=== PATIENT | female | born 1975 | race Caucasian/White ===

== ENCOUNTER → 2016-08-15 | Outpatient (CLI) | payer OTHER | END | disposition home or self-care (01) | LOC: C.LABBFT 07:58 | PROVIDERS: ATTEND Internal Medicine | DX: Z00.00 Encounter for general adult medical examination without abnormal findings (principal); E78.00 Pure hypercholesterolemia, unspecified ==

== ENCOUNTER → 2016-08-24 | Outpatient (CLI) | payer OTHER ==
--- NOTE | 2016-08-24 15:35 | MAMMOGRAPHY REPORT ---
BILATERAL FIRST EVER DIGITAL SCREENING MAMMOGRAM TOMOSYNTHESIS WITH CAD: 08/24/2016 TECHNIQUE: Breast tomosynthesis in addition to standard 2D mammography was performed. Current study was also evaluated with a Computer Aided Detection (CAD) system. COMPARISON: No prior exams were available for comparison. BREAST COMPOSITION: The tissue of both breasts is heterogeneously dense, which may obscure small ma sses. FINDINGS: No suspicious masses, calcifications, or areas of architectural distortion are noted in e ither breast. IMPRESSION: ACR BI-RADS CATEGORY 1: NEGATIVE There is no mammographic evidence of malignancy. A 1 year screening mammogram is recommended. The p atient will receive written notification of the results. Approximately 10% of breast cancers are not detected with mammography. A negative mammographic repor t should not delay biopsy if a clinically suggestive mass is present. Yun Skelton M.D. ah/:08/24/2016 15:16:31 Purchasing Supervisor: Deb SANZ(Renetta)(Esha), [facility] letter sent: Normal 1/2 BI-RADS Code: ACR BI-RADS Category 1: Negative
== END | disposition home or self-care (01) ==
LOC: C.MAMM 08:54
PROVIDERS: ATTEND Internal Medicine
DX: Z12.31 Encounter for screening mammogram for malignant neoplasm of breast (principal)

== ENCOUNTER → 2017-10-03 | Outpatient (CLI) | payer OTHER ==
--- NOTE | 2017-10-03 15:56 | MAMMOGRAPHY REPORT ---
BILATERAL DIGITAL SCREENING MAMMOGRAM TOMOSYNTHESIS WITH CAD: 10/03/2017 CLINICAL HISTORY: Routine screening. TECHNIQUE: Breast tomosynthesis in addition to standard 2D mammography was performed. Current study was also evaluated with a Computer Aided Detection (CAD) system. COMPARISON: Comparison is made to exam dated: 08/24/2016 mammogram - [facility]. BREAST COMPOSITION: The tissue of both breasts is heterogeneously dense, which may obscure small mas ses. FINDINGS: The parenchymal pattern is unchanged. No developing mass, architectural distortion or clus ter of suspicious microcalcifications is seen in either breast. IMPRESSION: ACR BI-RADS CATEGORY 2: BENIGN There is no mammographic evidence of malignancy. A 1 year screening mammogram is recommended. The pa tient will receive written notification of the results. Approximately 10% of breast cancers are not detected with mammography. A negative mammographic report should not delay biopsy if a clinically suggestive mass is present. Leeanne Santiago M.D. ay/:10/03/2017 12:46:08 Director Corporate Compliance: Reese SANZ(Renetta)(Esha), [facility] letter sent: Normal 1/2 BI-RADS Code: ACR BI-RADS Category 2: Benign
== END | disposition home or self-care (01) ==
LOC: C.MAMM 10:07
PROVIDERS: ATTEND Internal Medicine
DX: Z12.31 Encounter for screening mammogram for malignant neoplasm of breast (principal)

== ENCOUNTER → 2017-11-01 | Outpatient (CLI) | payer OTHER | END | disposition home or self-care (01) | LOC: C.LABBFT 10:11 | PROVIDERS: ATTEND Obstetrics & Gynecology | DX: N91.1 Secondary amenorrhea (principal) ==

== ENCOUNTER → 2017-12-04 | Outpatient (CLI) | payer OTHER | END | disposition home or self-care (01) | LOC: C.PAPS 11:46 | PROVIDERS: ATTEND Obstetrics & Gynecology | DX: Z01.419 Encounter for gynecological examination (general) (routine) without abnormal findings (principal); Z87.42 Personal history of other diseases of the female genital tract ==

== ENCOUNTER 2018-02-10 03:14 | Observation (INO) | payer OTHER ==
[~2018-02-10] VITALS: Ht 157.5 cm; Wt 57.0 kg
[2018-02-10] VITALS (7 sets, daily range): BP systolic 99–108; BP diastolic 63–68; PULSE 64–78; TEMP 36.4–37.3; O2SAT 95–98; Ht 157.5 cm; Wt 57.0 kg
[~2018-02-10 03:14] MED LIST: ASCO10003 PO; BISM262C6 PO; CHOL20009 PO; FERR18TA2 PO; ONDA4TAB10 SL; [UNRECOGNIZED DRUG - OTHER] TOP
[2018-02-10] MEDS ORDERED: ONDANSETRON INJ 2 MG/ML 2 ML VIAL IV STA (03:31)
[2018-02-10] MEDS ORDERED: MoRPHine SULFATE 4 MG/ML 1 ML CARP\\VIAL IV STA (03:31)
[2018-02-10] MEDS ORDERED: SODIUM CHLORIDE 0.9% 1000ML 1,000 ML IV STA (03:31)
[2018-02-10] MEDS ORDERED: OPTIRAY 320 IV PRN (03:45)
[2018-02-10 04:06] LABS: BASO % 0.1 %; BASO ABS # 0.01 K/uL (0-0.2); EOS % 0.1 %; EOS ABS # 0.01 K/uL (0-0.5); HEMATOCRIT 34.5 % (37-47); HEMOGLOBIN 11.4 g/dL (12.0-16.0); IG# 0.05 K/uL (0.00-0.02); LYMPH % 6.6 %; LYMPH ABS # 1.14 K/uL (1.2-3.4); MEAN CORPUSCULAR HEMOGLOBIN 31.1 pg (25-34); MEAN PLATELET VOLUME 11.2 fL (7.4-10.4); MONO % 9.3 %; MONO ABS # 1.61 K/uL (0.11-0.59); NEUT % 83.6 %; NEUT ABS # 14.52 K/uL (1.4-6.5); PLATELET COUNT 319 K/uL (130-400); RED CELL DISTRIBUTION WIDTH CV 13.9 % (11.5-14.5); RED CELL DISTRIBUTION WIDTH SD 47.2 fL (36.4-46.3); WHITE BLOOD COUNT 17.34 K/uL (4.8-10.8)
[2018-02-10 04:29] LABS: ALBUMIN 3.2 gm/dl (3.4-5.0); ALT/SGPT 20 U/L (12-78); AST/SGOT 13 U/L (15-37); BLOOD UREA NITROGEN 5 mg/dl (7-18); CALCIUM 7.8 mg/dl (8.5-10.1); CARBON DIOXIDE 26 mmol/L (21-32); CREATININE 0.63 mg/dl (0.60-1.20); GLUCOSE 103 mg/dl (70-99); LIPASE 720 U/L (73-393); POTASSIUM 3.5 mmol/L (3.5-5.1); SODIUM 142 mmol/L (136-145)
[2018-02-10 04:30] LABS: ALKALINE PHOSPHATASE 46 U/L (45-117); TOTAL PROTEIN 6.2 gm/dl (6.4-8.2)
[2018-02-10] MEDS ORDERED: CEFOXITIN SOD 1 GM VIAL IV STA (05:39)
--- NOTE | 2018-02-10 05:39 | EMERGENCY ROOM VISIT NOTE ---
History First contact with patient: 03:27 Chief Complaint: ABDOMINAL PAIN Stated Complaint: LWR RIGHT ABDOMINAL PAIN History of Present Illness The patient is a 42 year old female who presents to the Emergency Room with complaints of periumbilical right lower quadrant pain for the past day and a half that has gotten steadily worse. She describes the pain as throbbing, ranging severity 8 out of 10. Nothing makes it better or worse. It does not radiate. She states this is not feeling her menstrual cramps. She is currently spotting. Patient was seen here last night and is feeling slightly better but states the pain came back and came in for further evaluation and treatment. Patient states she tried some dry toast and Gatorade but this did not help. Patient complains of subjective fever and chills with nausea. Patient denies chest pain, dyspnea, vomiting, urinary symptoms, back pain, female problems. Review of Systems An 10 system review of systems was completed with positives and pertinent negatives listed in the HPI. Past Medical/Surgical History None Social History Smoking Status: Never Smoker Smokeless Tobacco Use: No Drug Use: none Marital Status: Housing Status: lives with family Current/Historical Medications Scheduled Ascorbic Acid (Vitamin C), 1,000 MG PO DAILY Bismuth Subsalicylate (Pepto-Bismol), 2 TABS PO prn Cholecalciferol (Vitamin D), 2,000 UNIT PO DAILY Ferrous Fumarate (Iron), 18 MG PO DAILY Ondasetron Odt (Zofran Odt), 4 MG SL Q6H [Natural Progesterine], 1 APPLN TOP UD Physical Exam Vital Signs Date Time Temp Pulse Resp B/P (MAP) Pulse Ox O2 Delivery O2 Flow Rate FiO2 02/10/18 05:12 62 18 98/59 96 Room Air 02/10/18 03:20 36.9 73 18 106/65 100 Room Air Physical Exam VITALS: Vitals are noted on the nurse's note and reviewed by myself. Vital signs stable. GENERAL: Pleasant edema, in no acute distress, nondiaphoretic, well-developed well-nourished. SKIN: The skin was without rashes, erythema, edema, or bruising. There is no tenting of the skin. Capillary reflex less than 2 seconds. HEAD: Normocephalic atraumatic. EARS: External auditory canals clear, tympanic membranes pearly lyons without erythema or effusion bilaterally. EYES: Pupils equal round and reactive to light and accommodation. Conjunctivae without injection, sclerae without icterus. Extraocular movements intact. NOSE: Patent, turbinates without inflammation or discharge. MOUTH: Mucous membranes moist. Pharynx without erythema or exudate. Uvula midline. Airway patent. Tongue does not deviate. NECK: Supple without nuchal rigidity. No lymphadenopathy. No thyromegaly. Cervical spine is nontender. No JVD. HEART: Regular rate and rhythm without murmurs gallops or rubs. LUNGS: Clear to auscultation bilaterally without wheezes, rales or rhonchi. No retractions or accessory muscle use. ABDOMEN: Positive bowel sounds x 4. Normal tympanic percussion. Soft, tender to palpation right lower quadrant, without masses or organomegaly. Shafer sign negative. No guarding or rebound tenderness. No CVA tenderness MUSCULOSKELETAL: No muscle atrophy, erythema, or edema noted. NEURO: Patient was alert and oriented to person place and time. Normal sensation to light and sharp touch. No focal neurological deficits. Medical Decision & Procedures Laboratory Results 02/10/18 03:47 Red Blood Count 3.67, Mean Corpuscular Volume 94.0, Mean Corpuscular Hemoglobin 31.1, Mean Corpuscular Hemoglobin Concent 33.0, Mean Platelet Volume 11.2, Neutrophils (%) (Auto) 83.6, Lymphocytes (%) (Auto) 6.6, Monocytes (%) (Auto) 9.3, Eosinophils (%) (Auto) 0.1, Basophils (%) (Auto) 0.1, Neutrophils # (Auto) 14.52, Lymphocytes # (Auto) 1.14, Monocytes # (Auto) 1.61, Eosinophils # (Auto) 0.01, Basophils # (Auto) 0.01 02/10/18 03:47 Test 02/10/18 03:47 White Blood Count 17.34 K/uL (4.8-10.8) Red Blood Count 3.67 M/uL (4.2-5.4) Hemoglobin 11.4 g/dL (12.0-16.0) Hematocrit 34.5 % (37-47) Mean Corpuscular Volume 94.0 fL (80-100) Mean Corpuscular Hemoglobin 31.1 pg (25-34) Mean Corpuscular Hemoglobin Concent 33.0 g/dl (32-36) Platelet Count 319 K/uL (130-400) Mean Platelet Volume 11.2 fL (7.4-10.4) Neutrophils (%) (Auto) 83.6 % Lymphocytes (%) (Auto) 6.6 % Monocytes (%) (Auto) 9.3 % Eosinophils (%) (Auto) 0.1 % Basophils (%) (Auto) 0.1 % Neutrophils # (Auto) 14.52 K/uL (1.4-6.5) Lymphocytes # (Auto) 1.14 K/uL (1.2-3.4) Monocytes # (Auto) 1.61 K/uL (0.11-0.59) Eosinophils # (Auto) 0.01 K/uL (0-0.5) Basophils # (Auto) 0.01 K/uL (0-0.2) RDW Standard Deviation 47.2 fL (36.4-46.3) RDW Coefficient of Variation 13.9 % (11.5-14.5) Immature Granulocyte % (Auto) 0.3 % Immature Granulocyte # (Auto) 0.05 K/uL (0.00-0.02) Anion Gap 6.0 mmol/L (3-11) Est Creatinine Clear Calc Drug Dose 92.0 ml/min Estimated GFR () 128.2 Estimated GFR (Non- 110.6 BUN/Creatinine Ratio 8.6 (10-20) Calcium Level 7.8 mg/dl (8.5-10.1) Total Bilirubin 0.4 mg/dl (0.2-1) Direct Bilirubin < 0.1 mg/dl (0-0.2) Aspartate Amino Transf (AST/SGOT) 13 U/L (15-37) Alanine Aminotransferase (ALT/SGPT) 20 U/L (12-78) Alkaline Phosphatase 46 U/L (45-117) Total Protein 6.2 gm/dl (6.4-8.2) Albumin 3.2 gm/dl (3.4-5.0) Lipase 720 U/L (73-393) Human Chorionic Gonadotropin, Qual NEG (NEG) Medications Administered Medications (Trade) Dose Ordered Sig/Tamiko Route Start Time Stop Time Status Last Admin Dose Admin Sodium Chloride 1,000 ml @ 999 mls/hr Q1H1M STAT IV 02/10/18 03:31 02/10/18 04:31 DC 02/10/18 03:56 999 MLS/HR Morphine Sulfate (MoRPHine SULFATE INJ) 4 mg NOW STAT IV 02/10/18 03:31 02/10/18 03:33 DC 02/10/18 03:55 4 MG Ondansetron HCl (Zofran Inj) 4 mg NOW STAT IV 02/10/18 03:31 02/10/18 03:33 DC 02/10/18 03:51 4 MG ED Course Prior records/ancillary studies reviewed. Triage Nursing notes reviewed. Additional history obtained from family. The patient's history was concerning for abdominal pain. Differential diagnosis: Etiologies such as appendicitis, diverticulitis, PUD, biliary pathology, UTI, pancreatitis, obstruction, mesenteric ischemia, aortic pathology, infections, inflammatory bowel disease, renal colic, as well as others were entertained. Physical examination findings: As above. ER treatment provided: Morphine, Zofran, fluids On reassessment the patient felt better. Diagnostics interpreted by me: Patient's chart was reviewed from yesterday and had a white count 21,000. Negative hCG The labs revealed leukocytosis Imaging studies: CT ABDOMEN & PELVIS With Contrast: Dilated appendix posterior to the cecum with internal appendicoliths and periappendiceal fat stranding. The appendix measures up to 17 mm in diameter. This finding is most consistent with acute appendicitis. No abscess formation, bowel obstruction or bowel perforation. Minimal dependent presumed atelectasis at the lung bases. Periportal lucency/edema. There is a nonspecific finding but may be seen with hypervolemia. The liver, gallbladder, pancreas, spleen, adrenal glands and kidneys are unremarkable. Cystic change in the left adnexa may represent left ovarian/adnexal cyst. Detailed valuation limited. Radiologist: Nato Plascencia MD Study ready at 04:21 and initial results transmitted at 05:33 Critical Value Communications Clear Time Type Notes 02/10/18 05:32 Call Doctor Regarding Appendicitis, called ALEXANDRA Long on 02/10 05:31 (-04:00) Consultation: A consultation was placed with the surgical PAWagner. The case was discussed and diagnostics were reviewed. The patient was evaluated in the ER for further treatment. Exam and history seem consistent with acute appendicitis. Patient will be evaluated by surgery for further evaluation and treatment. Patient was started on antibiotics. By the evaluation outlined above emergent etiologies such as diverticulitis, PUD, biliary pathology, UTI, pancreatitis, obstruction, mesenteric ischemia, aortic pathology,inflammatory bowel disease, renal colic, as well as others were deemed relatively unlikely. The pt informed about the findings as listed above. All questions were answered and pleased with the treatment. Case reviewed with my attending. The chart was completed utilizing [email or web address] Speech voice recognition software. Grammatical errors, random word insertions, pronoun errors, and incomplete sentences are an occassional consequence of this system due to software limitations, ambient noise, and hardware issues. Any formal questions or concerns about the content, text, or information contained within the body of this dictation should be directly addressed to the physician certified pharmacist assistant for clarification. Medical Decision As above Medication Reconcilliation Current Medication List: was personally reviewed by me Blood Pressure Screening Patient's blood pressure: Normal blood pressure Impression Primary Impression: Appendicitis Departure Information Dispostion Being Evaluated By Surgeon Condition GOOD Referrals Priyanka Saldana M.D. (PCP) Patient Instructions My [facility] Problem Qualifiers Primary Impression: Appendicitis Appendicitis type: acute appendicitis Acute appendicitis type: with localized peritonitis Qualified Codes: K35.3 - Acute appendicitis with localized peritonitis
[2018-02-10] MEDS ORDERED: HYDROmorphone INJ 0.5 MG/0.5 ML SYR IV PRN (06:00)
[2018-02-10] MEDS ORDERED: HYDROmorphone INJ 1 MG/ML SYR IV PRN (06:00)
[2018-02-10] MEDS ORDERED: ONDANSETRON INJ 2 MG/ML 2 ML VIAL IV PRN ×3 (06:00→11:15)
[2018-02-10] MEDS ORDERED: IV FLUIDS COMPLETED PRN (06:00)
[2018-02-10] MEDS ORDERED: ACETAMINOPHEN IV 100 ML IV PRN (06:00)
--- NOTE | 2018-02-10 06:11 | Surgery Consultation ---
Consultation Date of Consultation: Feb 10, 2018. Attending Physician: Reason for Consultation: Acute Appendicitis History of Present Illness Patient is a 42F who presents to the ED this morning due to abdominal pain starting Sunday night. Her pain started in the epigastric area and last night migrated to the RLQ. She has had associated chills but denies any fever. She had a couple episodes of N/V yesterday. Denies hematemesis. Reports a decreased appetite. She last ate 2 pieces of toast yesterday afternoon. She has been moving her bowels and urinating without issue. Denies previous abdominal surgeries in the past. Denies use of blood thinning or anticoagulant medications. Denies FHx of appendicitis. Denies problems with anesthesia in the past. WBC 17.34. CT shows a 17 mm dilated appendix with associated appendicolith and periappendiceal fat stranding. Findings consistent with acute appendicitis. No perforation or abscess. Past Medical/Surgical History Medical Problems: (1) Appendicitis Status: Acute (2) Dehydration Status: Acute (3) Leukocytosis Status: Acute (4) Nausea, vomiting, and diarrhea Status: Acute Social History Smoking Status: Never Smoker Smokeless Tobacco Use: No Drug Use: none Marital Status: Housing Status: lives with family Allergies Coded Allergies: No Known Allergies (Verified , 09/18/02) Home Medications Scheduled Ascorbic Acid (Vitamin C), 1,000 MG PO DAILY Bismuth Subsalicylate (Pepto-Bismol), 2 TABS PO prn Cholecalciferol (Vitamin D), 2,000 UNIT PO DAILY Ferrous Fumarate (Iron), 18 MG PO DAILY Ondasetron Odt (Zofran Odt), 4 MG SL Q6H [Natural Progesterine], 1 APPLN TOP UD Current Inpatient Medications Current Inpatient Medications Medications (Trade) Dose Ordered Sig/Tamiko Route Start Time Stop Time Status Last Admin Dose Admin Ioversol (Optiray 320) 125 ml UD PRN IV 02/10/18 03:45 02/14/18 03:44 Sodium Chloride 1,000 ml @ 100 mls/hr Q10H IV 02/10/18 06:00 03/12/18 05:59 UNV Cefoxitin Sodium 1000 mg/Dextrose 60 ml @ 100 mls/hr Q6H IV 02/10/18 12:00 02/11/18 11:59 UNV Hydromorphone HCl (Dilaudid Inj) FOR PAIN 0.5-1MG 0.5MG ... Q3H PRN IV 02/10/18 06:00 02/24/18 05:59 Ondansetron HCl (Zofran Inj) 4 mg Q6H PRN IV 02/10/18 06:00 03/12/18 05:59 Acetaminophen 100 ml @ 400 mls/hr Q8H PRN IV 02/10/18 06:00 03/12/18 05:59 Miscellaneous (Iv Fluids Completed) 1 ea PRN PRN N/A 02/10/18 06:00 02/10/19 05:59 Review of Systems Constitutional: + chills, No fever Respiratory: No shortness of breath Cardiovascular: No chest pain Abdomen: + pain (RLQ), + nausea, + vomiting, No diarrhea, No constipation Genitourinary - Female: No dysuria, No hematuria Integumentary: No new/changing skin lesions, No color change Physical Exam Date Time Temp Pulse Resp B/P (MAP) Pulse Ox O2 Delivery O2 Flow Rate FiO2 02/10/18 05:12 62 18 98/59 96 Room Air 02/10/18 03:20 36.9 73 18 106/65 100 Room Air General Appearance: WD/WN, no apparent distress Head: normocephalic, atraumatic ENT: hearing grossly normal Respiratory/Chest: no respiratory distress Abdomen/GI: soft, no organomegaly, no pulsatile mass, + tenderness (RLQ) Neurologic/Psych: alert, normal mood/affect, oriented x 3 Skin: normal color, warm/dry Laboratory Results Last 24 Hours Test 02/10/18 03:47 White Blood Count 17.34 K/uL Red Blood Count 3.67 M/uL Hemoglobin 11.4 g/dL Hematocrit 34.5 % Mean Corpuscular Volume 94.0 fL Mean Corpuscular Hemoglobin 31.1 pg Mean Corpuscular Hemoglobin Concent 33.0 g/dl Platelet Count 319 K/uL Mean Platelet Volume 11.2 fL Neutrophils (%) (Auto) 83.6 % Lymphocytes (%) (Auto) 6.6 % Monocytes (%) (Auto) 9.3 % Eosinophils (%) (Auto) 0.1 % Basophils (%) (Auto) 0.1 % Neutrophils # (Auto) 14.52 K/uL Lymphocytes # (Auto) 1.14 K/uL Monocytes # (Auto) 1.61 K/uL Eosinophils # (Auto) 0.01 K/uL Basophils # (Auto) 0.01 K/uL RDW Standard Deviation 47.2 fL RDW Coefficient of Variation 13.9 % Immature Granulocyte % (Auto) 0.3 % Immature Granulocyte # (Auto) 0.05 K/uL Sodium Level 142 mmol/L Potassium Level 3.5 mmol/L Chloride Level 110 mmol/L Carbon Dioxide Level 26 mmol/L Anion Gap 6.0 mmol/L Blood Urea Nitrogen 5 mg/dl Creatinine 0.63 mg/dl Est Creatinine Clear Calc Drug Dose 92.0 ml/min Estimated GFR () 128.2 Estimated GFR (Non- 110.6 BUN/Creatinine Ratio 8.6 Random Glucose 103 mg/dl Calcium Level 7.8 mg/dl Total Bilirubin 0.4 mg/dl Direct Bilirubin < 0.1 mg/dl Aspartate Amino Transf (AST/SGOT) 13 U/L Alanine Aminotransferase (ALT/SGPT) 20 U/L Alkaline Phosphatase 46 U/L Total Protein 6.2 gm/dl Albumin 3.2 gm/dl Lipase 720 U/L Human Chorionic Gonadotropin, Qual NEG Assessment & Plan Acute appendicitis Abdomen soft, non-distended, moderate TTP in RLQ. no N/V at this time. Plan for laparoscopic appendectomy, possible open with Dr. Russell in the OR today. Risks, benefits, alternatives to the procedure were discussed with patient and - questions answered. Admit med/surg (Obs), NPO, IVF, 1g Mefoxin Q6H, pain medication prn, anti- emetics prn, SCDs. OR notified. Please contact with questions or concerns.
[2018-02-10] MEDS ORDERED: SODIUM CHLORIDE 0.9% 1000ML 1,000 ML IV SCH (06:45)
[2018-02-10] MEDS ORDERED: BUPIVACAINE/EPINEPHRINE 0.5% MPF 1:200,000 30 ML VIAL ONE (06:49)
--- NOTE | 2018-02-10 07:56 | DIAGNOSTIC IMAGING REPORT ---
CT ABD/PELVIS IV CONTRAST ONLY CLINICAL HISTORY: Right lower quadrant abdominal pain COMPARISON STUDY: None. TECHNIQUE: Following the IV administration of 94 mL of Optiray-320, CT scan of the abdomen and pelvis was performed from the lung bases to the proximal femurs. Images are reviewed in the axial, sagittal, and coronal planes. IV contrast was administered without complication. A dose lowering technique was utilized adhering to the principles of ALARA. CT DOSE: 342.19 mGy.cm FINDINGS: Lower chest: There are minor dependent atelectatic changes. Liver: No focal masses are visualized. There is mild periportal edema, likely secondary to aggressive hydration. Gallbladder: Unremarkable. Spleen: Normal in size and attenuation. Pancreas: Unremarkable. Adrenal glands: Unremarkable. Kidneys: There is symmetric renal cortical enhancement. The kidneys are normal in size without hydronephrosis. Bowel: There are no transition zones indicate bowel obstruction. There is a dilated appendix measuring 17 mm in diameter. There is significant periappendiceal stranding. The findings are indicative of acute appendicitis. There are no fluid collections to indicate a periappendiceal abscess. Peritoneum: There is a small amount of free pelvic fluid. There is no free intraperitoneal air. Vasculature: The abdominal aorta is normal in course and caliber. Adenopathy: None. Pelvic viscera: There is equivocal uterine fundal fibroid. Ovarian follicles are visualized. Skeletal structures: No destructive osseous lesions are seen. IMPRESSION: Significantly dilated fluid-filled appendix with significant periappendiceal stranding. The findings are indicative of acute appendicitis. Electronically signed by: William Palacios M.D. 02/10/2018 7:54 AM Dictated Date/Time: 02/10/2018 7:51 AM
--- NOTE | 2018-02-10 09:56 | History & Physical Bridge Note ---
H&P Re-Evaluation Bridge Note: I have examined the patient, reviewed the History & Physical and in the interval since the performance of the History & Physical I have noted the following changes of clinical significance: No changes noted. we discussed her options and risks of surgery ( bleeding/infection/leaks/injury to other organs/ etc...). questions answered. ok to proceed.
[2018-02-10] MEDS ORDERED: NEOSTIGMINE METHYLSULFATE 5 MG/5 ML SYR ONE (09:58)
[2018-02-10] MEDS ORDERED: ROCURONIUM BROMIDE 10 MG/ML 5 ML VIAL ONE (09:58)
[2018-02-10] MEDS ORDERED: PROPOFOL IV EMULSION 10 MG/ML 20 ML VIAL ONE (09:58)
[2018-02-10] MEDS ORDERED: ONDANSETRON INJ 2 MG/ML 2 ML VIAL ONE (09:58)
[2018-02-10] MEDS ORDERED: LIDOCAINE HCL 2% 2 ML VIAL (20MG/ML) ONE (09:58)
[2018-02-10] MEDS ORDERED: DEXAMETHASONE SOD INJ 4 MG/ML VIAL ONE (09:58)
[2018-02-10] MEDS ORDERED: FENTANYL CITRATE INJ 50 MCG/1 ML 2 ML VIAL ONE (09:59)
[2018-02-10] MEDS ORDERED: MIDAZOLAM HCL 1 MG/ML 2ML VIAL ONE (09:59)
[2018-02-10] MEDS ORDERED: ATROPINE SULFATE 0.1 MG/ML 5ML SYR IV PRN (10:00)
[2018-02-10] MEDS ORDERED: EpHEDrine SULFATE INJ 50 MG/ML AMP IV PRN (10:00)
[2018-02-10] MEDS ORDERED: FENTANYL CITRATE INJ 50 MCG/1 ML 2 ML VIAL IV PRN (10:00)
[2018-02-10] MEDS ORDERED: KETOROLAC TROMETHAMINE 30 MG/ML VIAL ONE (10:46)
--- NOTE | 2018-02-10 10:52 | [facility] Operative Report ---
Operative Report Operative Date Feb 10, 2018. Pre-Operative Diagnosis Acute Appendicitis Post-Operative Diagnosis Same as preop Procedure(s) Performed Laparoscopic Appendectomy Surgeon Dr. Russell [facility] Business Manager Surgeon(s) Jodie NAVARRETE Estimated Blood Loss 5 ML Specimens A. Appendix Drains None Anesthesia Type General Complication(s) none Description of Procedure After informed consent was obtained the patient was taken to the operating room and placed in supine position. After successful intubation a Napoles catheter was placed and the left arm was tucked. A Napoles catheter was inserted sterilely. I began by making a periumbilical incision with an 11 blade scalpel and carried this down through the soft tissue using electrocautery. The anterior rectus fascia was opened using electrocautery and 2 #0 Vicryl stay sutures were placed. The peritoneum was elevated using hemostats and incised under direct vision using a Metzenbaum scissor. A finger sweep was performed. A 12 mm Luna trocar was placed and the abdomen was insufflated to 18 mmHg. A laparoscope was inserted and the abdomen was examined in 360. A suprapubic 5 mm port and a left lower quadrant 12 mm port were placed under direct vision. The patient was air planed to the left as well as placed in a slight Trendelenburg position. We began by looking in the right lower quadrant. We were able to readily identify the appendix and it was grossly inflamed. It had not perforated. There is a small amount of fluid in the right lower quadrant and the pelvis. We immediately irrigated and suctioned this out. I was able to use primarily blunt dissection to pull the appendix away from the right lower quadrant sidewall. I was then able to use a RANDY brown cartridge stapler to transect both the mesentery of the appendix as well as the appendix itself at its base with the cecum. It was then placed into an Endo Catch bag and removed from the camera port site. We thoroughly irrigated the right lower quadrant as well as the pelvis. There was adequate hemostasis. I ran the small bowel backwards from the terminal ileum for about 6 feet all of which was normal. All the peritoneal surfaces were normal. Small/ large bowel, liver, stomach etc. all appeared grossly normal. We did a final irrigation and then removed all the trochars and desufflated the abdomen. The fascia of the camera port as well as the left lower quadrant were closed using 0 Vicryl in figure-of- eight fashion. Wounds were all irrigated and closed using 4-0 Monocryl. Marcaine was injected around them for postoperative analgesia and skin glue used as a dressing. The patient was awakened extubated and transferred to recovery in stable condition. My physician's resident assistant cna was present through the entire case. She assisted with prepping the patient and helped with exposure for port placement, helped run the camera and helped with fascial/wound closure at the end of the procedure as well as dressing placement. I attest to the content of the Intraoperative Record and any orders documented therein. Any exceptions are noted below. I attest to the content of the Intraoperative Record and any orders documented therein. Any exceptions are noted below.
[2018-02-10] MEDS ORDERED: GLYCOPYRROLATE INJ 0.2 MG/ML VIAL ONE (11:01)
[2018-02-10] MEDS ORDERED: HYDR-5688 PO (11:11)
--- NOTE | 2018-02-10 11:13 | Discharge Instructions ---
Discharge Instructions Date of Service Feb 10, 2018. Admission Reason for Admission: Appendicitis Discharge Discharge Diagnosis / Problem: Appendicitis Discharge Goals Goal(s): Decrease discomfort, Improve function Activity Recommendations Activity Limitations: as noted below Lifting Limitations: no more than 10 pounds Exercise/Sports Limitations: until after follow-up appointment May Resume Sexual Activity: after follow-up appointment Shower/Bathe: tomorrow Driving or Machine Use: resume 1 day after discharge . Instructions / Follow-Up Instructions / Follow-Up You have surgical glue over your incisions. You may shower tomorrow, 02/11/2018, but please do not soak or scrub your incisions. Please follow-up with Dr. Russell in the General Surgery Clinic located at [address] [place] [address] [place], [place] in 1-2 weeks. Please call the clinic at to make an appointment. Please call the clinic at [phone] with any questions or concerns. Current Hospital Diet Patient's current hospital diet: Clear Liquid Diet Discharge Diet Recommended Diet: Regular Diet Procedures Procedures Performed: Laparoscopic Appendectomy Pending Studies Studies pending at discharge: yes List of pending studies: Pathology report. Medical Emergencies . Who to Call and When: Medical Emergencies: If at any time you feel your situation is an emergency, please call [phone] immediately. . Non-Emergent Contact Non-Emergency issues call your: Primary Care Provider, Surgeon Call Non-Emergent contact if: temperature is above 101.5, your pain is not controlled, wound has increased drainage, wound has increased redness . "Provider Documentation" section prepared by Jodie Deras. .
[2018-02-10] MEDS ORDERED: MoRPHine SULFATE 4 MG/ML 1 ML CARP\\VIAL IV PRN ×3 (11:15)
[2018-02-10] MEDS ORDERED: HYDROCODONE/ACETAMIN 5/325MG TAB PO PRN ×2 (11:15)
--- NOTE | 2018-02-10 11:21 | Anesthesiology Progress Note ---
Anesthesia Post Op Note Date & Time Feb 10, 2018 at 11:21 Vital Signs Pain Intensity: 5.0 Vital Signs Past 12 Hours Date Time Temp Pulse Resp B/P (MAP) Pulse Ox O2 Delivery O2 Flow Rate FiO2 02/10/18 08:44 37.3 65 16 108/63 Room Air 02/10/18 07:04 37.3 65 16 108/63 (78) 98 Room Air 02/10/18 06:29 71 18 101/66 97 02/10/18 06:15 71 18 101/66 97 Room Air 02/10/18 05:12 62 18 98/59 96 Room Air 02/10/18 03:20 36.9 73 18 106/65 100 Room Air Notes Mental Status: alert / awake / arousable, participated in evaluation Pt Amnestic to Procedure: Yes Nausea / Vomiting: adequately controlled Pain: adequately controlled Airway Patency, RR, SpO2: stable & adequate BP & HR: stable & adequate Hydration State: stable & adequate Anesthetic Complications: no major complications apparent
[2018-02-10] MEDS ORDERED: CEFOXITIN IV 1,000 MG in DEXTROSE 5% 50ML 50 ML IV SCH (12:00)
--- NOTE | 2018-02-14 14:44 | Discharge Summary ---
Discharge Summary Date of Service Feb 14, 2018. Admission Date/Reason Feb 10, 2018 at 05:53 Appendicitis. Discharge Date/Disposition Feb 10, 2018 Home Diagnosis Principal Diagnosis: Appendicitis Procedure(s) Performed Laparoscopic Appendectomy Medication Reconciliation Continued Medications: Ascorbic Acid (Vitamin C) 1,000 Mg Tab 1000 MG PO DAILY Bismuth Subsalicylate (Pepto-Bismol) 262 Mg Chw 2 TABS PO prn Cholecalciferol (Vitamin D) 2,000 Unit Tab 2000 UNIT PO DAILY Ferrous Fumarate (Iron) 18 Mg Tab 18 MG PO DAILY Ondasetron Odt (Zofran Odt) 4 Mg Tab 4 MG SL Q6H for Nausea, #10 TAB [Natural Progesterine] () 1 APPLN TOP UD 14 DAYS ON & 14 DAYS OFF. IS OFF AT PRESENT Admission Physical Exam As per Admitting History & Physical. Hospital Course Patient is a 42-year-old female who presented to the ED due to abdominal pain that began 2 days prior to admission. Her pain started in the epigastric area and then migrated to the RLQ. She has had associated chills but denies any fever. She had a couple episodes of N/V the day prior to coming to ED. Reported a decreased appetite. She had been moving her bowels and urinating without issue. Denies previous abdominal surgeries in the past. Denies use of blood thinning or anticoagulant medications. ED Course: WBC 17.34. CT shows a 17 mm dilated appendix with associated appendicolith and periappendiceal fat stranding. Findings consistent with acute appendicitis. No perforation or abscess. Recommendation- Laparoscopic Appendectomy, Possible Open Appendectomy Risks of surgery reviewed with patient. All questions answered. Patient was taken to main OR for Laparoscopic Appendectomy. Pre-Op Diagnosis- Acute Appendicitis Post-Op Diagnosis- Same as Pre-Op Post-operatively, patient was transferred back to Med/Surg floor for observation. Patient was evaluated later in the evening- at that time, pain was controlled, patient was tolerating a regular diet, voiding on own without difficulty. Patient was deemed eligible for discharge. Return precautions were reviewed. Patient to follow-up with [facility] in 1-2 weeks after discharge. Discharge Instructions Please refer to the electronic Patient Visit Report (Discharge Instructions) for additional information.
== END 2018-02-10 15:01 | disposition home or self-care (01) ==
LOC: C.EDB 03:14 → C.MSN 05:53 → ENRESERV 06:15
PROVIDERS: ADMIT Surgery; ATTEND Surgery
DX: K35.80 Unspecified acute appendicitis (principal); Z79.899 Other long term (current) drug therapy